=== PATIENT | female | born 1935 | race Caucasian/White ===

== ENCOUNTER 2018-11-04 10:52 | Emergency (ER) | payer OTHER ==
[~2018-11-04] VITALS: Ht 157.5 cm; Wt 75.0 kg
[~2018-11-04 10:52] MED LIST: ASPI-903 PO; ATOR40TA68 PO; HYDR10FO PR; LANT3I SC; LEVO88TA3 PO; LOSA25TA12 PO; MECL12.574 PO; MTF1000T PO; OMEP20CA16 PO
[2018-11-04 10:55] VITALS: Ht 157.5 cm; Wt 75.0 kg
[2018-11-04] MEDS ORDERED: FAMOTIDINE 20 MG INJ IV STA (11:15)
[2018-11-04] MEDS ORDERED: ONDANSETRON 4 MG INJ IV STA ×2 (11:15→12:47)
[2018-11-04] MEDS ORDERED: SOD CHLORIDE 0.9% 1,000 ML IV STA (11:15)
[2018-11-04] MEDS ORDERED: MECLIZINE 12.5 MG TAB PO ONE (11:30)
[2018-11-04] MEDS ORDERED: DIAZEPAM 5 MG TAB PO ONE (13:00)
[2018-11-04] MEDS ORDERED: MECL12.574 PO (13:27)
[2018-11-04] MEDS ORDERED: ONDA4TAB14 PO (13:27)
[2018-11-04 13:30] VITALS: BP 165/71; PULSE 68; RESP 16
--- NOTE | 2018-11-04 13:39 | ERD ---
ER Documentation Chief Complaint Chief Complaint R39 from home VOMITTING AND DIZZINESS SINCE AM, HX VERTIGO HPI This is a very pleasant 83-year-old female with a known history of hypertension and vertigo. She presents to the emergency department complaining of a sudden onset of dizziness which she described as though the room was spinning around her for the past 2 hours. She took Antivert but this did not improve her symptoms. She had several episodes of nonbloody nonbilious emesis and developed a bandlike headache therefore she was brought to the emergency department by rescue 39 for further evaluation. She also has a history of diabetes but has been compliant with her medications and denies any polyuria or polydipsia. She denies any changes in vision. She states this is not the worst headache of her life. She said no fevers or shaking or chills. She has no shortness of breath at rest or exertion. ROS All systems reviewed and are negative except as per history of present illness. Medications Home Meds Active Scripts Ondansetron (Ondansetron Odt) 4 Mg Tab.rapdis, 4 MG PO Q6H PRN for NAUSEA AND/OR VOMITING, #10 TAB Prov:SHANICE WOODS MD 11/04/18 Meclizine Hcl* (Antivert*) 12.5 Mg Tab, 12.5 MG PO Q6H PRN for DIZZINESS, #20 TAB Prov:SHANICE WOODS MD 11/04/18 Reported Medications Levothyroxine Sodium* (Levothyroxine Sodium*) 88 Mcg Tablet, 88 MCG PO BEFORE BREAKFAST, #30 TAB 09/14/18 Insulin Glargine* (Lantus*) 100 Unit/Ml Soln, 20 UNIT SC DAILY, #1 VIAL 09/14/18 Losartan Potassium* (Losartan Potassium*) 25 Mg Tablet, 25 MG PO DAILY, TAB 09/14/18 Omeprazole* (Omeprazole*) 20 Mg Capsule.dr, 20 MG PO AC BREAKFAST, #30 CAP 09/14/18 Atorvastatin* (Atorvastatin*) 40 Mg Tablet, 40 MG PO QHS, #30 TAB 09/14/18 Metformin* (Glucophage*) 1,000 Mg Tablet, 1000 MG PO BID, #60 TAB 09/14/18 Discontinued Reported Medications Aspirin* (Aspirin* Chew) 81 Mg Tab.chew, 81 MG PO DAILY, TAB.CHEW 09/14/18 Hydrocortisone/Pramoxine* (Proctofoam-HC*) 1%-10 Gm Foam, 1 APPLIC NM BID, EA 09/14/18 Discontinued Scripts Meclizine Hcl* (Antivert*) 12.5 Mg Tab, 12.5 MG PO Q6H PRN for DIZZINESS, #20 TAB Prov:VENKAT MCMILLAN MD 09/14/18 Allergies Allergies: Coded Allergies: No Known Allergy (Unverified , 11/04/18) PMhx/Soc Hx Alcohol Use: No Hx Substance Use: No Hx Tobacco Use: No Smoking Status: Never smoker Physical Exam Vitals Vital Signs Date Temp Pulse Resp B/P (MAP) Pulse Ox O2 O2 Flow FiO2 Time Delivery Rate 11/04/18 98.0 76 15 170/86 97 10:55 (114) Physical Exam Constitutional:Well-developed. Well-nourished. Actively vomiting. HEENT:Normocephalic. Atraumatic.Pupils were equal round reactive to light. Dry mucous membranes.No tonsillar exudates. Funduscopy exam shows sharp optic disks and venous pulsations are present Neck: No nuchal rigidity. No lymphadenopathy. No posterior cervical spine tenderness or step-offs. Respiratory: Not using accessory muscles of respiration.Lungs were clear to auscultation bilaterally. No rhonchi. No rales. No wheezing. Cardiovascular: Regular rate regular rhythm.No murmurs. No rubs were appre ciated.S1, S2 normal. Distal pulses are palpable 2+ bilaterally. GI: Abdomen was soft. Nontender. Non Distended. No pulsatile abdominal masses or bruits. No rebound. No guarding. Bowel sounds were present and normal. Muscle skeletal: Full range of motion of both the upper and lower extremities bilaterally.Normal muscle tone.No assymetrical calf tenderness or swelling. Skin: No petechia, no purpura. No lesions on the palms or the soles of the feet. No maculopapular rash. NEURO: Patient was alert, awake, orientated x3.No facial droop. Gait observed and normal with no ataxia.Speech had regular rate and rhythm. No focal neurological deficits. Peripheral fatigable nystagmus Result Diagram: 11/04/18 0913 11/04/18 0913 Results 24 hrs Laboratory Tests Test 3/30/19 09:13 11/04/18 11:11 White Blood Count 6.3 10^3/ul Red Blood Count 4.17 10^6/ul Hemoglobin 12.4 g/dl Hematocrit 36.8 % Mean Corpuscular Volume 88.2 fl Mean Corpuscular Hemoglobin 29.7 pg Mean Corpuscular Hemoglobin Concent 33.7 g/dl Red Cell Distribution Width 12.7 % Platelet Count 236 10^3/UL Mean Platelet Volume 10.1 fl Immature Granulocytes % 0.300 % Neutrophils % 51.4 % Lymphocytes % 41.2 % Monocytes % 5.6 % Eosinophils % 1.0 % Basophils % 0.5 % Nucleated Red Blood Cells % 0.0 /100WBC Immature Granulocytes # 0.020 10^3/ul Neutrophils # 3.2 10^3/ul Lymphocytes # 2.6 10^3/ul Monocytes # 0.4 10^3/ul Eosinophils # 0.1 10^3/ul Basophils # 0.0 10^3/ul Nucleated Red Blood Cells # 0.0 10^3/ul Prothrombin Time 12.3 Sec Prothrombin Time Ratio 1.0 INR International Normalized Ratio 0.90 Activated Partial Thromboplast Time 29.2 Sec Sodium Level 137 mmol/L Potassium Level 4.2 mmol/L Chloride Level 102 mmol/L Carbon Dioxide Level 23 mmol/L Anion Gap 12 Blood Urea Nitrogen 11 mg/dl Creatinine 0.65 mg/dl Est Glomerular Filtrat Rate mL/min mL/min Glucose Level 308 mg/dl Calcium Level 9.5 mg/dl Total Bilirubin 0.5 mg/dl Direct Bilirubin 0.00 mg/dl Indirect Bilirubin 0.5 mg/dl Aspartate Amino Transf (AST/SGOT) 23 IU/L Alanine Aminotransferase (ALT/SGPT) 18 IU/L Alkaline Phosphatase 156 IU/L Troponin I < 0.012 ng/ml Total Protein 7.7 g/dl Albumin 4.3 g/dl Globulin 3.40 g/dl Albumin/Globulin Ratio 1.26 Bedside Glucose 296 mg/dL Current Medications Medications Dose Sig/[place] Start Time Status Last (Trade) Ordered Route PRN Stop Time Admin Dose Reason Admin Sodium 1,000 ml @ Q1H STAT 11/04/18 DC 11/04/18 Chloride 1,000 mls/hr IV 11:15 11:36 11/04/18 12:14 Ondansetron 4 mg ONCE STAT 11/04/18 DC 11/04/18 HCl (Zofran IV 11:15 11:36 Inj) 11/04/18 11:16 Famotidine 20 mg ONCE STAT 11/04/18 DC 11/04/18 (Pepcid Iv) IV 11:15 11:39 11/04/18 11:16 Meclizine 25 mg ONCE ONCE 11/04/18 DC 11/04/18 HCl PO 11:30 11:37 (Antivert) 11/04/18 11:31 Ondansetron 4 mg ONCE STAT 11/04/18 DC HCl (Zofran IV 12:47 Inj) 11/04/18 12:48 Diazepam 5 mg ONCE ONCE 11/04/18 DC (Valium) PO 13:00 11/04/18 13:01 Procedures/[facility] This patient was seen and evaluated by myself. The patient presented to the emergency department complaining of dizziness. My differential diagnosis included but was not limited to hypovolemia, myocardial infarction, pulmonary embolism, hypoglycemia, hypoxia, anemia, vasovagal episode, hypothyroidism, anxiety, peripheral or central vertigo. The patient was placed on a environmental monitoring specialist, continuous pulse oximetry and IV access established by nursing staff. The patient was given intravenous fluids Zofran and Antivert. Her symptoms did not improve. Therefore she was given p.o. Valium. I obtained a 12-lead EKG tracing to rule out for atypical myocardial ischemia. 12 Lead EKG tracing ordered and reviewed by myself showed: Normal sinus rhythm of 76 bpm and no arrhythmia. NM interval normal. QRS duration normal. No ST segment elevation No ST segment depression. No changes consistent with acute ischemia. I obtained a CT scan of the patient's head given that she was experiencing a bandlike headache which she had not normally experienced during her fatigue and the symptoms of vomiting. These are signs of increased intracranial pressure again therefore felt it was necessary to obtain a CT scan of the patient's head. This was reviewed by myself the radiologist there is no intracerebral hemorrhage mass-effect or midline shift. The patient's vertigo had completely resolved after she received the Valium. No severe electrolyte abnormalities other than hyperglycemia without ketosis. The patient states she felt comfo rtable being discharged home. The patient was discharged home in fair condition. They were instructed to return to the emergency department at any time if there was any worsening of their condition. The patient stated they would follow up with their PCP in the next 24-48 hours to initiate a suitable medication regimen under the care of their PCP as well as to allow their PCP to monitor any drug reactions. The patient was discharged home with prescriptions after they gave informed consent to the new medication. They were also fully informed by myself on the adverse effects and adverse drug interactions in order to provide adequate safeguards to prevent possible adverse reactions to medicati ons. Departure Diagnosis: Primary Impression: Peripheral vertigo Laterality: unspecified laterality Qualified Codes: H81.399 - Other peripheral vertigo, unspecified ear Additional Impression: Hyperglycemia without ketosis Condition: Fair Patient Instructions: Geremiastigo, Unspecified SHANICE WOODS MD Nov 04, 2018 13:39
== END 2018-11-04 13:30 | disposition home or self-care (01) ==
LOC: E/R 10:52
DX: H81.399 Other peripheral vertigo, unspecified ear (principal); E11.65 Type 2 diabetes mellitus with hyperglycemia; I10 Essential (primary) hypertension; Z79.4 Long term (current) use of insulin
CPT/HCPCS: 36415; 70450; 80053; 82962; 84484; 85025; 85610; 85730; 93005; 96374; 96375; 99285; J2405; J7030

== ENCOUNTER 2018-11-08 16:40 | Emergency (ER) | payer OTHER ==
[~2018-11-08] VITALS: Ht 165.1 cm; Wt 72.3 kg
[~2018-11-08 16:40] MED LIST changes: -ASPI-903 PO; -HYDR10FO PR; +ONDA4TAB14 PO
[2018-11-08 17:24] VITALS: Ht 165.1 cm; Wt 72.3 kg
[2018-11-09 03:00] VITALS: BP 145/76; PULSE 70; RESP 16
--- NOTE | 2018-11-13 04:27 | ERD ---
ER Documentation Chief Complaint Chief Complaint HTN, DIZZINESS HPI This is an 83-year-old female with hypertension and dizziness. Patient has a history of vertigo recently diagnosed. She did not take her meclizine prior to arrival. She denies any fevers or chills. She denies any nausea vomiting. She denies any focal neurologic complaints. Denies any chest pain or shortness of breath. Denies any ataxia. ROS All systems reviewed and are negative except as per history of present illness. Medications Home Meds Active Scripts Ondansetron (Ondansetron Odt) 4 Mg Tab.rapdis, 4 MG PO Q6H PRN for NAUSEA AND/OR VOMITING, #10 TAB Prov:SHANICE WOODS MD 11/04/18 Meclizine Hcl* (Antivert*) 12.5 Mg Tab, 12.5 MG PO Q6H PRN for DIZZINESS, #20 TAB Prov:SHANICE WOODS MD 11/04/18 Reported Medications Levothyroxine Sodium* (Levothyroxine Sodium*) 88 Mcg Tablet, 88 MCG PO BEFORE BREAKFAST, #30 TAB 09/14/18 Insulin Glargine* (Lantus*) 100 Unit/Ml Soln, 20 UNIT SC DAILY, #1 VIAL 09/14/18 Losartan Potassium* (Losartan Potassium*) 25 Mg Tablet, 25 MG PO DAILY, TAB 09/14/18 Omeprazole* (Omeprazole*) 20 Mg Capsule.dr, 20 MG PO AC BREAKFAST, #30 CAP 09/14/18 Atorvastatin* (Atorvastatin*) 40 Mg Tablet, 40 MG PO QHS, #30 TAB 09/14/18 Metformin* (Glucophage*) 1,000 Mg Tablet, 1000 MG PO BID, #60 TAB 09/14/18 Allergies Allergies: Coded Allergies: No Known Allergy (Unverified , 11/09/18) PMhx/Soc Hx Alcohol Use: No Hx Substance Use: No Hx Tobacco Use: No Smoking Status: Never smoker Physical Exam Physical Exam Const: No acute distress Head: Atraumatic Eyes: Normal Conjunctiva ENT: Normal External Ears, Nose and Mouth. Neck: Full range of motion. No meningismus. Resp: Clear to auscultation bilaterally Cardio: Regular rate and rhythm, no murmurs Abd: Soft, non tender, non distended. Normal bowel sounds Skin: No petechiae or rashes Back: No midline or flank tenderness Ext: No cyanosis, or edema Neur: Awake and alert Psych: Normal Mood and Affect Result Diagram: 11/08/18 0300 Results 24 hrs Laboratory Tests Test 11/08/18 23:30 11/08/18 23:42 Bedside Glucose 262 mg/dL White Blood Count 6.4 10^3/ul Red Blood Count 4.66 10^6/ul Hemoglobin 13.8 g/dl Hematocrit 41.2 % Mean Corpuscular Volume 88.4 fl Mean Corpuscular Hemoglobin 29.6 pg Mean Corpuscular Hemoglobin Concent 33.5 g/dl Red Cell Distribution Width 12.7 % Platelet Count 270 10^3/UL Mean Platelet Volume 9.7 fl Immature Granulocytes % 0.300 % Neutrophils % 52.3 % Lymphocytes % 39.7 % Monocytes % 6.7 % Eosinophils % 0.5 % Basophils % 0.5 % Nucleated Red Blood Cells % 0.0 /100WBC Immature Granulocytes # 0.020 10^3/ul Neutrophils # 3.4 10^3/ul Lymphocytes # 2.6 10^3/ul Monocytes # 0.4 10^3/ul Eosinophils # 0.0 10^3/ul Basophils # 0.0 10^3/ul Nucleated Red Blood Cells # 0.0 10^3/ul Prothrombin Time 13.6 Sec Prothrombin Time Ratio 1.1 INR International Normalized Ratio 1.03 Activated Partial Thromboplast Time 28.2 Sec Sodium Level 139 mmol/L Potassium Level 4.0 mmol/L Chloride Level 97 mmol/L Carbon Dioxide Level 30 mmol/L Anion Gap 12 Blood Urea Nitrogen 11 mg/dl Creatinine 0.74 mg/dl Est Glomerular Filtrat Rate mL/min mL/min Glucose Level 282 mg/dl Calcium Level 10.1 mg/dl Troponin I < 0.012 ng/ml Procedures/[facility] EKG: Rate/Rhythm: [Normal Sinus Rhythm] QRS, ST, T-waves: [No changes consistent w/ acute ischemia] Impression: [No evidence of ischemia or arrhythmia] Chest X-ray 1V Interpreted by me: Soft Tissue: No acute abnormalities Bones: No acute abnormalities Mediastinum/Cardiac Silhouette/Lungs: [No acute abnormalities] Medical decision making: Patient's blood pressure was elevated (>120/80) but appears stable without evidence of hypertension emergency or urgency. The patient was counseled about the risks of hypertension and urged to pursue outpatient monitoring and therapy within a week with their primary care physician. Patient's neurologic symptoms have stabilized while they have been evaluated in the department and are appropriate for outpatient work up. No e/o meningitis, intracranial bleed, seizure, stroke. Departure Diagnosis: Primary Impression: Peripheral vertigo Laterality: unspecified laterality Qualified Codes: H81.399 - Other peripheral vertigo, unspecified ear Additional Impression: Hypertensive urgency Condition: Stable Patient Instructions: Dizziness, Unk Cause CHRISSY NOLEN Nov 13, 2018 04:27
== END 2018-11-09 02:57 | disposition home or self-care (01) ==
LOC: E/R 16:40
DX: H81.399 Other peripheral vertigo, unspecified ear (principal); I16.0 Hypertensive urgency; E11.9 Type 2 diabetes mellitus without complications; I10 Essential (primary) hypertension; Z79.4 Long term (current) use of insulin
CPT/HCPCS: 36415; 70450; 71045; 80048; 82962; 84484; 85025; 85610; 85730; 93005